=== PATIENT | female | born 1985 | race Caucasian/White ===

== ENCOUNTER 2025-05-07 19:16 | Emergency (ER) | payer BC, SELFPAY ==
--- NOTE | ~2025-05-07 | XR_ITS ---
CHEST RADIOGRAPH, PA AND LATERAL CLINICAL HISTORY: cp . COMPARISON: None available TECHNIQUE: PA and lateral views of the chest. FINDINGS The cardiomediastinal silhouette is unremarkable. The lungs are clear. IMPRESSION: No focal infiltrate or effusion. Reviewed, dictated and finalized at location A.
--- NOTE | 2025-05-07 19:20 | ECG_ITS ---
Test Date: 2025-05-07 19:24:22 Measurements Intervals Luckey Rate: 80 P: 43 MI: 134 QRS: 6 QRSD: 86 T: 46 QT: 366 QTc: 424 Interpretive Statements SINUS RHYTHM WITH SINUS ARRHYTHMIA POSSIBLE LEFT ATRIAL ENLARGEMENT CONSIDER RIGHT VENTRICULAR CONDUCTION DELAY LOW QRS VOLTAGE IN PRECORDIAL LEADS BORDERLINE ECG No previous ECG available for comparison Electronically Signed On 05-07-2025 19:55:19 CDT by Isai Mcclellan D.O.
[2025-05-07 19:25] VITALS: BP 123/62; PULSE 85; RESP 18; TEMP 36.6; O2SAT 100
--- NOTE | 2025-05-07 21:29 | PC.NURSE ---
Pt to Xray at this time.
[2025-05-07] MEDS: ASPIRIN 81 MG CHEWABLE TABLET 324 MG PO (21:35)
[2025-05-07 21:52] LABS: Hematocrit 39.6 % (37.0-47.0); Hemoglobin 12.9 g/dL (12.0-15.0); Immature Granulocyte Percent A 0.2 % (0-0.5); Lymphocytes Absolute Auto 2.36 K/mm3 (0.9-3.2); Mean Corpuscular HGB Conc 32.6 g/dl (32-36); Mean Corpuscular Hemoglobin 31.9 pg (26-34); Mean Corpuscular Volume 97.8 fl (80-100); Nucleated Red Blood Cells Absolute Auto 0.000 K/mm3 (0.0-0.012); Nucleated Red Blood Cells Perc 0.0 % (0.0-0.2); Platelet Count Result 283 k/mm3 (150-375); Red Blood Count 4.05 M/mm3 (4.2-5.4); White Blood Count 8.5 K/mm3 (4.5-10.0)
--- OUTSIDE RECORDS SUMMARY | 2025-05-07 22:18 | XMS_ITS | Patient Health Record ---
Author Organization [facility] [employer] [place] ([id number]) Address [address] [place] [address] Care Team Providers Care Senior Staff Specialized Employment Name Role Phone Megan Saunders Primary Care Provider Unav Rachel Kingston Unavailable [phone] Zeyad Petersen Unavailable [phone] Ronak Merchant Unavailable [phone] Hannah Kessler Unavailable [phone] Allergies Allergen (clinical drug ingredient) Drug/Non Drug Allergy documented on EMR Reaction Allergy Type Onset Date Status guaifenesin Mucinex hives Drug Allergy Activ e Reason For Referral No Information Medications Medication SIG (Take, Route, Frequency, Duration) Notes Start Date End Date Status Liothyronine Sodium 5 MCG 1 tab(s) orally once a day Active Levothyroxine Sodium 88 MCG 1 tab(s) orally once a day Active Pedvax HIB 7.5 MCG/0.5ML as directed Intramuscular Active Pneumovax 23 25 MCG/0.5ML as directed Injection Active Montelukast Sodium 10 MG TAKE 1 TABLET BY MOUTH DAILY; Duration: 90 Active LEVOCETIRIZINE 5 mg 1 tab(s) orally once per day; Duration: 30 days Not-Taking LIOTHYRONINE 5 mcg 1 tab(s) orally once a day Not-Taking LEVOTHYROXINE 88 mcg (0.088 mg) 1 tab(s) orally once a day Not-Taking LEVOCETIRIZINE 5 mg 1 tab(s) orally once per day; Duration: 30 days Not-Taking VITAMIN D3 1250 mcg 1 cap(s) orally once a week; Duration: 56 days 12/06/2023 Not-Taking Xolair 300 MG/2ML Inject 300mg subcutaneously every 4 weeks; Duration: 28 days 02/28/2024 Active LORATADINE 10 mg 1 tab(s) orally once a day Not-Taking Pepcid 40 mg 1 tab(s) orally 2 times a day; Duration: 30 days Active Vitamin D3 1250 MCG 1 CAP(S) ORALLY ONCE A WEEK; Duration: 56 DAYS *Please review and pick correct strength-formula tion from XO1 options. If intended option is not shown, discontinue and re-order from Quick Search* 12/06/2023 Not-Taking Pepcid 40 mg 1 tab(s) orally 2 times a day; Duration: 30 days Active Levocetirizine Dihydrochloride 5 MG 1 tab(s) orally once per day; Duration: 30 days Not-Taking Loratadine 10 MG 1 tab(s) orally once a day Not-Taking XOLAIR 150 mg as directed subcutaneously every 4 weeks; Duration: 365 days Active Montelukast Sodium 10 MG 1 tablet Orally Once a day; Duration: 90 days Active PEPCID 40 mg 1 tab(s) orally 2 times a day; Duration: 30 days Active EPIPEN 2-TORIBIO 0.3 mg as directed intramuscularly once; Duration: 1 days 02/28/2024 Not-Taking MONTELUKAST 10 mg 1 tab(s) orally once at night; Duration: 90 days Not-Taking PEPCID 40 mg 1 tab(s) orally 2 times a day; Duration: 30 days Not-Taking EpiPen 2-Toribio 0.3 MG/0.3ML as directed intramuscularly once; Duration: 1 days 02/28/2024 Active PEPCID 40 mg 1 tab(s) orally 2 times a day; Duration: 30 days Active Social History Tobacco Use: Social History Observation Description Date Details (start date - stop date) Never Smoker NA - NA Tobacco Control (Standard) Question Answer Notes Tobacco use: Nonsmoker Problems Problem Type SNOMED Code ICD Code Onset Dates Problem Status W/U Status Risk Notes Problem Vitamin D deficiency (83266382) Vitamin D deficiency, unspecified (E55.9) Active confirmed Problem Autoimmune thyroiditis (84019482) Autoimmune thyroiditis (E06.3) Active confirmed Problem Chronic rhinitis (94108769) Chronic rhinitis (J31.0) Active confirmed Problem Chronic sinusitis (47249929) Chronic sinusitis, unspecified (J32.9) Active confirmed Problem Hypertrophy of nasal turbinates (55143423) Hypertrophy of nasal turbinates (J34.3) Active confirmed Problem Uncomplicated moderate persistent asthma (436931824) Moderate persistent asthma, uncomplicated (J45.40) Active confirmed Problem Uncomplicated severe persistent asthma (586984054) Severe persistent asthma, uncomplicated (J45.50) Active confirmed Problem Urticaria (924508532) Other Urticaria (L50.8) Active confirmed Vital Signs Oximetry 100 % 04/19/2025 Blood pressure diastolic 72 mm Hg 04/19/2025 Height 62 in 04/19/2025 Blood pressure systolic 103 mm Hg 04/19/2025 Weight 189.4 lbs 09/25/2024 BMI 34.64 kg/m2 09/25/2024 Encounters Encounter Location Date Provider Diagnosis [facility] [address] [place] [phone] 05/22/2024 Ronak Merchant Hypertrophy of nasal turbinates J34.3 ; Other urticaria L50.8 ; Chronic rhinitis J31.0 ; Chronic sinusitis, unspecified J32.9 and Vitamin D deficiency, unspecified E55.[address] [address] 06/20/2024 Rachel Hagnauer Hypertrophy of nasal turbinates J34.3 ; Other urticaria L50.8 ; Chronic rhinitis J31.0 ; Chronic sinusitis, unspecified J32.9 and Vitamin D deficiency, unspecified E55.[address] [place] [address] [address] 07/20/2024 Zeyad Petersen Other Urticaria L50. [address] [address] 08/17/2024 Zeyad Petersen Other Urticaria L50. [address] [address] 09/25/2024 Rachel Hagnauer Hypertrophy of nasal turbinates J34.3 ; Other urticaria L50.8 ; Chronic rhinitis J31.0 ; Chronic sinusitis, unspecified J32.9 and Vitamin D deficiency, unspecified E55.9 [facility] [address] [place] [phone] 10/26/2024 Zeyad Win Other Urticaria L50. 8 [facility] [address] [place] [phone] 11/23/2024 Zeyad Win Other Urticaria L50. [address] [address] 12/21/2024 Zeyad Win Other Urticaria L50. [address] [address] 01/25/2025 Zeyad Win Other Urticaria L50. [address] [address] 02/22/2025 Zeyad Win Other Urticaria L50. [address] [address] 03/22/2025 Zeyad Win Other Urticaria L50. [address] [address] 04/19/2025 Zeyad Win Other Urticaria L50. [address] [address] 09/07/2024 Rachel More [facility] [address] [place] [address] 04/23/2025 Rachel More Other urticaria L50. 8 [facility] [address] [place] [address] 2025 Rachel More [address] [address] 11/07/2024 Rachel More Assessments Encounter Date Diagnosis (ICD Code) Assessment Notes Treatment Notes Treatment Clinical Notes Section Notes 05/22/2024 Hypertrophy of nasal turbinates (ICD-10 - J34.3) Grazyna reports long history of upper airway symptoms concerning for uncontrolled atopic disease. Reports seeing an manager area over ten years ago, where she had testing completed and was positive to everything. Currently takes loratadine daily. - Grazyna is not interested in further evaluation of upper airway symptoms at this time. Discuss further when Grazyna's hives as above are better controlled 05/22/2024 Other urticaria (ICD-10 - L50.8) Grazyna presented with complaints of raised, erythematous of pruritic welts that have been occurring almost daily for the past 3 years. She reports that initially welts would only occur on her hands, then would occur on her hands and feet. Now, she often experiences generalized hives. Pressure and heat are triggers, she has also noticed an increase in symptoms when taking ibuprofen, Mucinex and DayQuil. She denies associated systemic symptoms. Has attempted treatment with daily loratadine, cetirizine, levocetirizine and fexofenadine, all of which she felt exacerbated her symptoms. She denies changes to her diet, environment or medication regimen when hives first occurred. 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 - Previously discussed plan to start high dose antihistamines with H1/H2 blockers and LTRA at night. Grazyna has now tried Zyrtec, Gaby, Xyzal and Claritin, all of which she feels exacerbates her hives. No associated symptoms noted. That said, she has taken Zyrtec and Claritin since last visit without issue. - Labs ordered for underlying autoimmune, thyroid, and mast cell conditions as above. Labs returned showing elevated LYLE titer, thyroid peroxidase antibodies and thyroglobulin antibodies. 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 Also with urine sample findings concerning for contamination, labs previously faxed to PCP. - Grazyna is clearly a candidate for Xolair. She was educated regarding the risks/benefits/alter natives to Xolair. Also reviewed 'boxed warning' for anaphylaxis as well as risk for malignancy and CV disease. She understands she is required to be observed for a 30 minute period. She does not feel she could hanle at home administration as she would pass out. AIE on hand for today's dosing. - Grazyna continued XOLAIR today. Dosing was tolerated without issue, she was observed for two hours. Training on AIE was provided. Thoroughly discussed indications of use. 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 Accordingly, this patient requires direct monitoring and administration by a healthcare professional. - Return in 4 weeks for XOLAIR administration and further evaluation and management 09/25/2024 Hypertrophy of nasal turbinates (ICD-10 - J34.3) Grazyna reports long history of upper airway symptoms concerning for uncontrolled atopic disease. Reports seeing an manager area over ten years ago, where she had testing completed and was positive to everything. Currently takes loratadine daily. - Grazyna is not interested in further evaluation of upper airway symptoms at this time. Discuss further when Grazyna's hives as above are better controlled 09/25/2024 Other urticaria (ICD-10 - L50.8) Grazyna presented previously with complaints of raised, erythematous of pruritic welts that have been occurring almost daily for the past 3 years. She reports that initially welts would only occur on her hands, then would occur on her hands and feet. Now, she often experiences generalized hives. Pressure and heat are triggers, she has also noticed an increase in symptoms when taking ibuprofen, Mucinex and DayQuil. She denies associated systemic symptoms. Has attempted treatment with daily loratadine, cetirizine, levocetirizine and fexofenadine, all of which she felt exacerbated her symptoms. She denies changes to her diet, environment or medication regimen when hives first occurred. 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 - Previously discussed plan to start high dose antihistamines with H1/H2 blockers and LTRA at night. Grazyna has now tried Zyrtec, Gaby, Xyzal and Claritin, all of which she feels exacerbates her hives. No associated symptoms noted. That said, she has taken Zyrtec and Claritin since without issue. - Labs ordered for underlying autoimmune, thyroid, and mast cell conditions as above. Labs returned showing elevated LYLE titer, thyroid peroxidase antibodies and thyroglobulin antibodies. 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 Also with urine sample findings concerning for contamination, labs previously faxed to PCP. - Grazyna is clearly a candidate for Xolair. She was again educated regarding the risks/benefits/alter natives to Xolair. Also reviewed 'boxed warning' for anaphylaxis as well as risk for malignancy and CV disease. She understands she is required to be observed for a 30-minute period. She does not feel she could handle at home administration as she would pass out. AIE on hand for today's dosing. - Grazyna continued XOLAIR today. Dosing was tolerated without issue. Training on AIE was provided previously. Thoroughly discussed indications of use. 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 Accordingly, this patient requires direct monitoring and administration by a healthcare professional. - Return in 4 weeks for XOLAIR administration and in 3-4 months for further evaluation and management 10/26/2024 Other Urticaria (ICD-10 - L50.8) 11/23/2024 Other Urticaria (ICD-10 - L50.8) 12/21/2024 Other Urticaria (ICD-10 - L50.8) 01/25/2025 Other Urticaria (ICD-10 - L50.8) 02/22/2025 Other Urticaria (ICD-10 - L50.8) 03/22/2025 Other Urticaria (ICD-10 - L50.8) 04/19/2025 Other Urticaria (ICD-10 - L50.8) 04/23/2025 Other urticaria (ICD-10 - L50.8) 06/20/2024 Hypertrophy of nasal turbinates (ICD-10 - J34.3) Grazyna reports long history of upper airway symptoms concerning for uncontrolled atopic disease. Reports seeing an manager area over ten years ago, where she had testing completed and was positive to everything. Currently takes loratadine daily. - Grazyna is not interested in further evaluation of upper airway symptoms at this time. Discuss further when Grazyna's hives as above are better controlled 06/20/2024 Other urticaria (ICD-10 - L50.8) Grazyna presented with complaints of raised, erythematous of pruritic welts that have been occurring almost daily for the past 3 years. She reports that initially welts would only occur on her hands, then would occur on her hands and feet. Now, she often experiences generalized hives. Pressure and heat are triggers, she has also noticed an increase in symptoms when taking ibuprofen, Mucinex and DayQuil. She denies associated systemic symptoms. Has attempted treatment with daily loratadine, cetirizine, levocetirizine and fexofenadine, all of which she felt exacerbated her symptoms. She denies changes to her diet, environment or medication regimen when hives first occurred. 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 - Previously discussed plan to start high dose antihistamines with H1/H2 blockers and LTRA at night. Grazyna has now tried Zyrtec, Gaby, Xyzal and Claritin, all of which she feels exacerbates her hives. No associated symptoms noted. That said, she has taken Zyrtec and Claritin since last visit without issue. - Labs ordered for underlying autoimmune, thyroid, and mast cell conditions as above. Labs returned showing elevated LYLE titer, thyroid peroxidase antibodies and thyroglobulin antibodies. 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 Also with urine sample findings concerning for contamination, labs previously faxed to PCP. - Grazyna is clearly a candidate for Xolair. She was educated regarding the risks/benefits/alter natives to Xolair. Also reviewed 'boxed warning' for anaphylaxis as well as risk for malignancy and CV disease. She understands she is required to be observed for a 30-minute period. She does not feel she could handle at home administration as she would pass out. AIE on hand for today's dosing. - Grazyna continued XOLAIR today. Dosing was tolerated without issue. Training on AIE was provided previously. Thoroughly discussed indications of use. 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 Accordingly, this patient requires direct monitoring and administration by a healthcare professional. - Return in 4 weeks for XOLAIR administration and further evaluation and management 07/20/2024 Other Urticaria (ICD-10 - L50.8) 08/17/2024 Other Urticaria (ICD-10 - L50.8) 09/25/2024 Chronic rhinitis (ICD-10 - J31.0) See plan above 06/20/2024 Chronic rhinitis (ICD-10 - J31.0) See plan above 05/22/2024 Chronic rhinitis (ICD-10 - J31.0) See plan above 05/22/2024 Chronic sinusitis, unspecified (ICD-10 - J32.9) Grazyna endorses frequent sinus infections each year meeting JMF criteria for modified PIDD work-up. - PIDD work-up shows inadequate protection to streptococcal pneumoniae and haemophilus influenzae, Grazyna is considering at this time. Rx printed which she will check with insurance. - Vitamin D low at 18.8 dg/mL. Grazyna has since completed 50,000 IU of vitamin D/ week for 8 weeks, Discussed following by 5,000 IU/day for 4 weeks today. Plan to recheck level after obtaining boosters 06/20/2024 Chronic sinusitis, unspecified (ICD-10 - J32.9) Grazyna endorses frequent sinus infections each year meeting JMF criteria for modified PIDD work-up. - PIDD work-up shows inadequate protection to streptococcal pneumoniae and haemophilus influenzae, Grazyna is considering at this time. Rx printed which she will check with insurance. - Vitamin D low at 18.8 dg/mL. Grazyna has since completed 50,000 IU of vitamin D/ week for 8 weeks, Discussed following by 5,000 IU/day for 4 weeks today. Plan to recheck level after obtaining boosters 09/25/2024 Chronic sinusitis, unspecified (ICD-10 - J32.9) Grazyna endorses frequent sinus infections each year meeting JMF criteria for modified PIDD work-up. - PIDD work-up shows inadequate protection to streptococcal pneumoniae and haemophilus influenzae, Grazyna is considering at this time. Rx printed which she will check with insurance. - Vitamin D low at 18.8 dg/mL. Grazyna has since completed 50,000 IU of vitamin D/ week for 8 weeks, Discussed following by 5,000 IU/day for 4 weeks today. She is due for vitamin D recheck, however would like to hold off at this time 09/25/2024 Vitamin D deficiency, unspecified (ICD-10 - E55.9) See plan above 06/20/2024 Vitamin D deficiency, unspecified (ICD-10 - E55.9) See plan above 05/22/2024 Vitamin D deficiency, unspecified (ICD-10 - E55.9) See plan above 05/22/2024 Other 06/20/2024 Other 07/20/2024 Other 08/17/2024 Other 09/25/2024 Other 10/26/2024 Other 11/23/2024 Other 12/21/2024 Other 01/25/2025 Other 02/22/2025 Other 03/22/2025 Other 04/19/2025 Other Plan Of Treatment Next Appt Details Provider Name:Hannah bashir, 05/17/2025 10:30:00 AM, [address] [facility] [address], [address], Insurance Providers Payer Name Payer Address Payer Phone Subscriber Number Group Number Insured Name Patient Relationship to Insured Coverage Start Date Coverage End Date [facility] [address] [place] [address] [id number] Ellis Gillis Spouse - patient is the spouse of the insured 2 Medical (General) History Medical History History ICD Code Autoimmune thyroiditis E06.3 Surgical History Surgery Date(Month/Year) tonsillectomy 2002 wisdom teeth extraction 2002
--- OUTSIDE RECORDS SUMMARY | 2025-05-07 22:18 | XMS_ITS | Clinical Summary ---
Author Organization [facility] Address [address] [address] Phone Care Team Providers Care Associate Creative Director Name Role Phone Nava Rivera APRN, KAMRYN Unavailable [phone] Megan Saunders APRN, FAMILY DAY CARE WORKER Primary Care P rovider Karl Rivas MD Unavailable Allergies Active Allergy Reactions Criticality Noted Date Comments Loratadine Hives 11/05/2023 Dm-Guaifenesin Er Hives 11/05/2023 Cetirizine Hives 11/05/2023 Medications Fluticasone Propionate (FLONASE NA) by Nasal route. 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 180 Tablet 1 4 Active Omalizumab (XOLAIR SC) by Subcutaneous route. Active tirzepatide-mason ght management (Zepbound) 2.5 MG/0.5ML Solution Auto-injector 2.5 mg by Subcutaneous route once a week. 2 mL 5 Active Phentermine HCl 15 MG Capsule Take 1 Capsule by mouth daily. 30 Capsule 5 Active levothyroxine (SYNTHROID) 100 MCG Tablet Take 1 Tablet by mouth daily. 90 Tablet 1 5 Active Active Problems Problem Noted Date Diagnosed Date EVELINE (obstructive sleep apnea) 01/28/2021 Obesity (BMI 30.0-34.9) 12/31/2017 Irritable bowel syndrome without diarrhea 2016 Seasonal allergic rhinitis due to pollen 017 Depression 10/04/2015 Anxiety 10/04/2015 Migraine 10/04/2015 Hypothyroidism 10/04/2015 Vitamin D deficiency 10/04/2015 Hyperlipidemia 10/04/2015 Resolved Problems Problem Noted Date Diagnosed Date Resolved Date Obesity, Class II, BMI 35-39 .9, with comorbidity 06/25/2017 12/31/2017 Encounters Date Type Department Care Team Description 05/07/2025 Nurse Triage [facility] [address] [place] [address] Megan Saunders, GRADUATE STUDIES DEAN, FAMILY DAY CARE WORKER Appointment; Breathing Problem 02/14/2025 9:15 AM CDT Office Visit [facility] - [place] [address] [place] [address] Rajan Shelley, JORGE A Sore throat (Primary Dx) Discharge Disposition: Discharged to home or Selfcare 02/14/2025 Travel from Last 3 Months Immunizations Immunization Administration Dates Next Due Human Papillomavirus Vaccine (HPV), quadrivalent 01/02/2009,09/03/2008,07/04/2008 Influenza Vaccine, Quadrivalent, PF 09/11/2021,0 06/05/2019 Influenza, Seasonal, Injectable, Undefined 06/18 TDAP Vaccine 07/03/2016 Family History Medical History Relation Name Comments Cancer Mother Relation Name Status Comments Mother Social History Tobacco Use Types Packs/Day Years Used Date Smoking Tobacco: Former Smokeless Tobacco: Never Tobacco Cessation:Counseling Given: Not Answered Alcohol Use Standard Drinks/Week Comments Yes 0 (1 standard drink = 0.6 oz pur e alcohol) PHQ-2 Answer Date Recorded Total Score - Questions 1-9 0 01/26 Education Answer Date Recorded What is the highest level of school you have completed or the highest degree you have received? Associate degree: occupational, technical, or vocational program 05/29/2021 Comments No Sex and Gender Information Value Date Recorded Sex Assigned at Not on file Legal Sex Female 12:02 AM CDT Gender Identity Not on file Sexual Orientation Not on file Last Filed Vital Signs Vital Sign Reading Time Taken Comments Blood Pressure 120/64 02/14/2025 9:08 AM CDT Pulse 104 02/14/2025 9:08 AM CDT Temperature 36.7 C (98 F) 02/14/2025 9:08 AM CDT Respiratory Rate 16 02/14/2025 9:08 AM CDT Oxygen Saturation 99% 02/14/2025 9:08 AM CDT Inhaled Oxygen Concentration - - Weight 85.7 kg (189 lb) 02/14/2025 9:08 AM CDT Height 160 cm (5' 3) 03/13/2024 4:02 PM CDT Body Mass Index 33.48 03/13/2024 4:02 PM CDT Plan of Treatment Upcoming Encounters Date Type Department Care Team (Late st Contact Info) Description 05/11/2025 9:00 AM CDT Office Visit [facility] [address] [place] [address] Karl Rivas MD [address] [address] 07/26/2025 9:00 AM CDT Office Visit [facility] [address] [place] [address] Karl Rivas MD [address] [address] Health Maintenance Due Date Last Done Comments Hepatitis C Virus (HCV) Screening 1985 Hepatitis B Immunization (1 of 3 - 19+ 3-dose series) 2003 HPV/Cotest 2014 Cervical Cancer Screening (CCS) 02/23/2022 Pap Smear 02/23/2022 02/23/2019, 08/27/2016, 10/12/2014 SARS-COV-2 Immunization (2023-25 season) 2024 Mammogram 05/04/2025 05/04/2024 Influenza Immunization (#1) 05/28/202508/27, 06/05/2019, 06/18/2016 Td Immunization Every 10 Yea rs (Adults With 1 Tdap) 07/03/2026 07/03/2016 Respiratory Syncytial Virus (RSV) Immunization (Adult) (1 - 1-dose 75+ series) 2059 Human Papillomavirus (HPV) Immunization Completed 01/02/2009, 09/03/2008, 07/04/2008 Discussion re Starting/Frequency of Mammograms Completed 05/04/2024 Meningococcal Immunization (ACWY) Aged Out No longer eligible b ased on patient's age to complete this topic Pneumococcal Immunization Combined Aged Out No longer eligible b ased on patient's age to complete this topic Rotavirus Immunization Aged Out No lo nger eligible based on patient's age to complete this topic Procedures Procedure Name Priority Date/Time Associated Diagnosis Comments POCT MONO TEST Routine 02/14/2025 9:42 AM CDT Sore throat POC GROUP A STREP BY MOLECULAR Routine 02/14/2025 9:22 AM CDT Sore throat PATHOLOGY CYTOLOGY DISPATCH ASSOCIATE Routine 10/12/2014 from Last 3 Months or Most Recently Relevant to Health Maintenance Results * POCT MONO TEST (02/14/2025 9:42 AM CDT) MONO TEST Negative Negative, Other, VOID POC MONOSPOT CONTROL Restaurant Attendant Pass 02/14/2025 9:42 AM CDT us Rajan Shelley PAC POINT OF CARE TESTING (MYCHAL Pop) Final Result * POC GROUP A STREP BY MOLECULAR (02/14/2025 9:22 AM CDT) STREP A DNA Negative Negative, Invalid PROCEDURE CONTROL Valid 02/14/2025 9:22 AM CDT us Rajan Shelley PAC POINT OF CARE TESTING (MYCHAL Pop) Final Result * PATHOLOGY CYTOLOGY DISPATCH ASSOCIATE (10/12/2014) Specimen of unknown material (specimen) Nava Rivera APRN, FAMILY DAY CARE WORKER PATHOLOGY/CYTOLOGY ORDER JASBIR Final Result from Last 3 Months or Most Recently Relevant to Health Maintenance Insurance [facility] Care Teams Associate Creative Director Relationship Specialty Start Date End Date Megan Saunders APRN, FAMILY DAY CARE WORKER [address] [place] [address] PCP - General Advanced Practice Nurse 05/08/21 Nava Rivera APRN, FAMILY DAY CARE WORKER Obstetrics & Gynecology 06/05/19 Karl Rivas MD [address] [phone] Consulting Physician Endocrinology 07/06/22
--- OUTSIDE RECORDS SUMMARY | 2025-05-07 22:18 | XMS_ITS | Encounter Summary ---
Author Organization [facility] Address [address] [place] [address] Phone Care Team Providers Care Playground Director Name Role Phone Nava Rivera APRN, CNP Unavailable [phone] Megan Saunders APRN, SALT MAKER Primary Care P maryder Karl Rivas MD Unavailable Reason for Visit * Reason Onset Date Comments Appointment 05/07/2025 Breathing Problem 05/07/2025 Encounter Details Date Type Department Care Team (Late st Contact Info) Description 05/07/2025 Nurse Triage [facility] [address] [place] [address] Megan Saunders APRN, SALT MAKER [address] [place] [address] Appointment; Breathing Problem Social History Tobacco Use Types Packs/Day Years Used Date Smoking Tobacco: Former Smokeless Tobacco: Never Alcohol Use Standard Drinks/Week Comments Yes 0 [...] on file Sexual Orientation Not on file documented as of this encounter Miscellaneous Notes * Telephone Encounter - Anila Duncan RN - 05/07/2025 4:09 PM CDT SITUATION: 40 y.o. with breathing problem BACKGROUND: Patient contacting PCP office. Patient states she feels a tightness in her chest. She states she feels better when she takes a deep breath, but the tightness doesn't go away. Patient states that she has used a pulse ox because it felt like her heart was pounding, but her pulse was sitting at 80, and oxygen level 98% Patient reports this has been going on intermittently for a few weeks ASSESSMENT: Symptom Description / Location: Chest tightness Feels like she needs to take a deep breath As if her regular breaths are more shallow Cut caffeine and symptoms still happening Itchy eyes and sneezing Patient has been on a higher dose of levothyroxine in the last 4 weeks, that is newer Increased fatigue Treatment / Response: denies Caller denies pain. Denies fever. DENIES: chest PAIN, anxiety, caffeine intake, blue lips, passing out, struggling for each breath, choking, confusion, stridor, wheezing, known exposure to covid or flu, cough, congestion, inability to swallow, history of blood clots, major surgery in the past month, palpitations RECOMMENDATION: Caller agreeable to highest disposition listed: Go to Office or Video Visit Now. Due to office unavailability within disposition, advised for patient to be seen at prompt care or urgent care. Caller agreeable to prompt care/urgent care. Patient states she is going to call urgentcares in her area to see if they can do EKGs. Patient scheduled appointment with endo to discuss possibility of medication side effects on 05/11. - Reason for Disposition: MILD difficulty breathing (e.g., minimal/no SOB at rest, SOB with walking, pulse < 100) of new-onset or worse than normal . Protocols Used: Breathing [id number] See care advice and disposition for Guideline. First positive answer recorded, all responses to prior questions were negative. If symptoms increase, change or if new symptoms develop, call your health care provider or call back. Recommendations were based on caller information and is not a diagnosis. Verified and reviewed all triage information with caller. * Telephone Encounter - Marie Flower. - 05/07/2025 4:08 PM CDT Symptom: Chest Pain - Adult Outcome: Transfer to slot technician queue Reason: Caller denied all higher acuity questions The caller accepted this outcome. Caller Denied: * Trouble breathing * Passed out * Severe pain now * Heaviness on chest documented in this encounter Plan of Treatment Upcoming Encounters Date Type Department Care Team (Late st Contact Info) Description 05/11/2025 9:00 AM CDT Office Visit [facility] [address] [place] [address] Karl Rivas MD [address] [address] 07/26/2025 9:00 AM CDT Office Visit [facility] - [place] [address] [place] [address] Karl Rivas MD [address] [address] documented as of this encounter Visit Diagnoses Not on filedocumented in this encounter Additional Health Concerns Assessment Noted Time PHQ-9 Depression Total Score: 0 02/15/20 25 9:08 AM CDT documented as of this encounter Care Teams Playground Director Relationship Specialty Start Date End Date HuelsMegan thurston APRN, SALT MAKER [address] [place] [address] PCP - General Advanced Practice Nurse 05/08/21 Nava Rivera APRN, SALT MAKER Obstetrics & Gynecology 06/05/19 Karl Rivas MD [address] [address] Consulting Physician Endocrinology 07/06/22 documented as of this encounter
[2025-05-07 22:19] LABS: Alanine Aminotransferase 16 U/L (6-35); Albumin Level 4.4 g/dL (3.5-5.1); Alkaline Phosphatase 68 U/L (38-126); Anion Gap 9 mmol/L (4-12); Aspartate Amino Transferase 27 U/L (14-36); Bilirubin,Total 0.3 mg/dL (0.2-1.3); Blood Urea Nitrogen 19 mg/dL (7-17); Calcium 9.1 mg/dL (8.4-10.2); Carbon Dioxide 23 mmol/L (22-30); Chloride 105 mmol/L (98-107); Estimated CRCL calculation 75 ml/min; Estimated Glomerular Filt Rate > 60; Glucose 97 mg/dL (65-110); INR 1.0; Lipase 65 U/L (23-300); Potassium 4.0 mmol/L (3.4-5.0); Prothrombin Time 13.7 Seconds (11.1-14.7); Sodium 137 mmol/L (137-145); Total Protein 7.8 g/dL (6.3-8.2)
--- OUTSIDE RECORDS SUMMARY | 2025-05-07 22:19 | XMS_ITS ---
Author Organization [facility] [place] ([address]) Address [address] [place] [address] Care Team Providers Care Music Worker Name Role Phone Megan Saunders Primary Care Provider Unav ailable Rachel More Unavailable [phone] Hannah Kessler Unavailable [phone] REASON FOR VISIT XOLAIR SP Follow-up Encounters Encounter Location Date Provider Diagnosis [facility] [place] [address] [place] [address] 04/19/2025 Hannah Kessler Plan Of Treatment Next Appt Details Provider Name:Hannah bashir, 05/17/2025 10:30:00 AM, [address] [facility], [address], [place], [address], Progress Notes * Elly GILLIS SDOB:[birth year] (40 yo F)Acc No.[id number]:04/19/2025 XOLAIR F/U Patient: Scott Elly [place] Provider: SEBASTIAN Smith :1985 A ge:39 Y S ex:Female Date:04/19/2025 Address:[address] [place], [place] [phone] Pcp:Megan Saunders Subjective: * Chief Complaints: * 1 . XOLAIR SP Follow-up. * Medical History: Objective: * Vitals: Assessment: Plan: * Treatment: * Billing Information: * Visit Code: * Procedure Codes: * Electronic signature of SEBASTIAN Lopez on 05/07/2025 at 10:18 PM CDT Sign off status: Pending * Provider: SEBASTIAN Smith Date: 0 04/19/2025 Generated for Micky fuentes/Jose Manuel/Real on: 0 05/07/2025 10:18 PM CDT
[2025-05-07 22:20] LABS: Partial Thromboplastin Time 24.6 Seconds (22.3-36.8)
[2025-05-07 22:26] LABS: Troponin I < 0.012 ng/mL (0.000-0.034)
[2025-05-07 23:06] LABS: Magnesium 2.0 mg/dL (1.6-2.3)
[2025-05-07 23:11] LABS: Thyroid Stimulating Hormone Reflex 2.580 uIU/mL (0.465-4.68)
--- NOTE | 2025-05-07 23:19 | ED_ITS ---
HPI - Arrhythmia/Palpitations General Chief Complaint: Arrhythmia/Palpitations Stated Complaint: needs an EKG Time Seen by Provider: 05/07/25 21:59 Source: patient Mode of arrival: ambulatory Limitations: no limitations History of Present Illness HPI narrative: Patient is a 40-year-old female who presents the ED with report of palpitations. Patient reports having intermittent palpitations over the past few weeks. States it feels as though her heart is racing, however her heart rate is within normal range whenever she checks it. Denies her heart rate ever being above 100 beats per minute. States she has felt somewhat short of breath, described as though she needs to taking a deep breath. Denies dyspnea with exertion. Also reports intermittent chest tightness, headache. Patient notes history of Kitty's thyroiditis and states her levothyroxine was recently increased from 88 mcg to 100. She is scheduled to follow-up with her tracer bullet section supervisor next Wednesday. Denies dizziness, lightheadedness, pain or swelling in her legs. Related Data Allergies Allergy/AdvReac Type Severity Reaction Status Date / Time No Known Allergies Allergy Verified 05/07/25 21:35 Review of Systems 2 Review of Systems: All systems reviewed & are unremarkable except as noted in HPI. All systems reviewed & are unremarkable except as noted in HPI and below Exam 2 Narrative: GENERAL: Well appearing, obese with BMI of 34.5, non-toxic, in no acute distress. HEAD: Normocephalic, atraumatic. RESPIRATORY: Airway patent, respirations nonlabored. Clear to auscultation bilaterally, no rales, rhonchi, wheezing. CARDIOVASCULAR: Regular rate and rhythm without murmurs, rubs, or gallops. No significant ectopy heard. Peripheral pulses intact. ABDOMINAL: Soft, nontender, nondistended. Normoactive BS. MUSCULOSKELETAL: Moves all extremities. No gross deformities. No peripheral edema. SKIN: Warm, dry, normal color. NEURO: A&O X3. Speech clear. Steady gait. No ataxic movements. PSYCHIATRIC: Appropriate mood and affect. Normal interaction. Course Vital Signs Vital signs: Vital Signs Temperature 97.9 F 05/07/25 19:25 Pulse Rate 85 05/07/25 19:25 Respiratory Rate 18 05/07/25 19:25 Blood Pressure 123/62 05/07/25 19:25 Pulse Oximetry 100 05/07/25 19:25 Oxygen Delivery Room Air 05/07/25 19:25 Temperature 97.8 F 05/08/25 00:01 Pulse Rate 71 05/08/25 00:01 Respiratory Rate 18 05/08/25 00:01 Blood Pressure 123/74 05/08/25 00:01 Pulse Oximetry 97 05/08/25 00:01 Oxygen Delivery Room Air 05/07/25 19:25 MDM - Arrhythmia/Palpitations MDM Narrative Medical decision making narrative: Patient presented to ED with intermittent palpitations over the past few weeks, chest tightness, mild shortness of breath. Vital signs are stable upon arrival. No tachycardia or hypoxia. Heart rate has never been seen above 100 beats per minute ear. Appears sinus on telemetry. Patient is in no acute distress. Exam otherwise unremarkable. EKG with sinus rhythm, sinus arrhythmia. No significant ST changes. Troponin undetectable. Electrolytes stable. Mag within normal range. TSH within normal range. D-dimer within normal range. Chest x-ray is clear. Discussed lab and imaging findings, overall reassuring workup with patient. Discussed possible need for Holter monitor and advised close follow-up with PCP and tracer bullet section supervisor for further evaluation. Discussed possibility of anxiety, dysrhythmia, thyroid etiology. Feel patient is safe for discharge home at this time. Discussed strict return precautions. She is in agreement with plan. Discharged in stable condition. Medical Records Attestation: I reviewed the patient's medical records. Lab Data Attestation: I reviewed the patient's lab results. 05/07/25 21:45 05/07/25 21:45 Labs: Lab Results 05/07/25 05/07/25 Range/Units 21:45 21:49 WBC 8.5 (4.5-10.0) K/mm3 RBC 4.05 L (4.2-5.4) M/mm3 Hgb 12.9 (12.0-15.0) g/dL Hct 39.6 (37.0-47.0) % MCV 97.8 (80-100) fl MCH 31.9 (26-34) pg MCHC 32.6 (32-36) g/dl RDW 12.4 (11.5-14.5) % Plt Count 283 (150-375) k/mm3 MPV 10.1 (7.4-10.4) fl Immature Gran % (Auto) 0.2 (0-0.5) % Neut % (Auto) 62.9 (45.5-73.1) % Lymph % (Auto) 27.7 (18.3-44.2) % [place] % (Auto) 6.6 (2.6-8.5) % Eos % (Auto) 1.9 (0-4.4) % Baso % (Auto) 0.7 (0.2-1.2) % Lymph # (Auto) 2.36 (0.9-3.2) K/mm3 [place] # (Auto) 0.6 (0.1-0.6) K/mm3 Eos # (Auto) 0.2 (0-0.3) K/mm3 Baso # (Auto) 0.1 (0.0-0.1) K/mm3 Abs Immat Gran (auto) 0.02 (0.00-0.031) K/mm3 Absolute Neuts (auto) 5.4 (1.3-6.7) K/mm3 Absolute Nucleated RBC 0.000 (0.0-0.012) K/mm3 Nucleated RBC % 0.0 (0.0-0.2) % PT 13.7 (11.1-14.7) Seconds INR 1.0 APTT 24.6 (22.3-36.8) Seconds D-Dimer 0.38 (<0.48) ug/mL Sodium 137 (137-145) mmol/L Potassium 4.0 (3.4-5.0) mmol/L Chloride 105 (98-107) mmol/L Carbon Dioxide 23 (22-30) mmol/L Anion Gap 9 (4-12) mmol/L BUN 19 H (7-17) mg/dL Creatinine 0.92 (0.7-1.0) mg/dL Estim Creat Clear Calc 75 ml/min Estimated GFR > 60 (59 - ) Glucose 97 (65-110) mg/dL Calcium 9.1 (8.4-10.2) mg/dL Magnesium 2.0 (1.6-2.3) mg/dL Total Bilirubin 0.3 (0.2-1.3) mg/dL AST 27 (14-36) U/L ALT 16 (6-35) U/L Alkaline Phosphatase 68 (38-126) U/L Troponin I < 0.012 (0.000-0.034) ng/mL Total Protein 7.8 (6.3-8.2) g/dL Albumin 4.4 (3.5-5.1) g/dL Lipase 65 (23-300) U/L TSH (Reflex) 2.580 (0.465-4.68) uIU/mL Imaging Data Attestation: I personally reviewed and interpreted this imaging study as follows: Radiologist's impression: ITS Impressions Chest X-Ray 05/07/25 22:15 IMPRESSION: No focal infiltrate or effusion. ECG Data EKG #1: Attestation: I personally reviewed and interpreted this ECG as follows: ECG completion date: 05/07/25 ECG completion time: 19:24 EKG Interpretation: normal rate (80), sinus rhythm (With sinus arrhythmia) and non-specific ST changes Discharge Plan Discharge Clinical Impression: Palpitations Patient Disposition: Home Condition: Stable Instructions: Antibiotic Form, Heart Palpitations (ED), Hypothyroidism (ED) Additional Instructions: Your workup here was reassuring. Continue to monitor symptoms. Recommend close follow-up with your primary care doctor and tracer bullet section supervisor for further evaluation. Return to the ED if you experience worsening or severe palpitations, severe chest pain, difficulty breathing, unable to keep down food or drink, pain or swelling in your legs, or any other symptoms of concern. Patient Language: Lithuanian Follow-up/Referrals: Nicky,Megan [Other] Time of Disposition: 23:28
[2025-05-08 00:01] VITALS: BP 123/74; PULSE 71; RESP 18; TEMP 36.6; O2SAT 97
== END 2025-05-08 00:03 | disposition home or self-care (01) ==
PROVIDERS: Student in an Organized Health Care Education/Training Program; Emergency Provider Physician Assistant
DX: R00.2 Palpitations (principal); R94.31 Abnormal electrocardiogram [ECG] [EKG]
CPT/HCPCS: 36415; 71046; 80053; 83690; 83735; 84443; 84484; 85025; 85380; 85610; 85730; 93005; 99284; A9270